=== PATIENT | female | born 1950 | race Two or more races ===

== ENCOUNTER 2016-10-28 09:30 | Emergency (ER) | payer MEDICARE, MEDICAID ==
[~2016-10-28] VITALS: Ht 162.6 cm; Wt 52.2 kg
[2016-10-28] MEDS ORDERED: Haloperidol 5mg/ml Inj IM ONE (11:30)
--- NOTE | 2016-10-28 11:45 | Diagnostic Imaging Report ---
Indication: Chest Pain Comparison: None A single view chest radiograph was obtained. Findings: Mild linear densities are noted at the lung bases likely atelectasis. Heart size is normal. Lung volumes are low. The bones are osteopenic. Impression: Mild basilar atelectasis
[2016-10-28 12:24] VITALS: BP 99/51
[2016-10-28 12:33] LABS: BASOPHILS % (AUTO) 0.4 % (0.0-2.0); EOSINOPHILS % (AUTO) 0.3 % (0.0-3.0); LYMPHOCYTES % (AUTO) 8.6 % (20.0-45.0); MEAN CORPUSCULAR HEMOGLOBIN 33.4 PG (27.0-31.0); MEAN CORPUSCULAR HGB CONC 31.5 G/DL (32.0-36.0); MEAN CORPUSCULAR VOLUME 106 FL (80-99); MONOCYTES % (AUTO) 8.3 % (1.0-10.0); NEUTROPHILS % (AUTO) 82.5 % (45.0-75.0); PLATELET COUNT 629 K/UL (150-450); RED BLOOD COUNT 2.77 M/UL (4.20-5.40); WHITE BLOOD COUNT 12.1 K/UL (4.8-10.8)
[2016-10-28 12:42] LABS: ALANINE AMINOTRANSFERASE 292 U/L (3-33); ALBUMIN/GLOBULIN RATIO 0.7 (1.0-2.7); ANION GAP 16 (5-15); ASPARTATE AMINO TRANSFERASE 762 U/L (5-40); CALCIUM 9.4 mg/dL (8.6-10.2); CARBON DIOXIDE 22 mEQ/L (20-30); CHLORIDE 89 mEQ/L (98-107); CREATININE 0.8 mg/dL (0.5-0.9); GLOMERULAR FILTRATION RATE > 60 mL/min (>60); HEMOLYSIS 4; POTASSIUM 2.8 mEQ/L (3.4-4.9); SODIUM 127 mEQ/L (135-145); TOTAL PROTEIN 5.7 g/dL (6.6-8.7); TROPONIN I < 0.30 ng/mL (<=0.30)
[2016-10-28 12:52] LABS: CKMB < 1.5 ng/mL (< 3.8)
[2016-10-28 13:19] LABS: BILIRUBIN,DIRECT 15.7 mg/dL (0.1-0.3)
[2016-10-28] MEDS ORDERED: NORCO 10-325 T1 EACH ORAL (13:44)
[2016-10-28] MEDS ORDERED: LEVAQUIN750 MG ORAL (13:44)
[2016-10-28 14:08] VITALS: BP 99/51
--- NOTE | 2016-10-28 15:16 | Emergency Room Report ---
History of Present Illness General Chief Complaint: General Complaint Source: Patient, Family Member, Medical Record, EMS Present Illness HPI 66-year-old female presents to ED for evaluation. EMS brought the patient in because she wanted to see a doctor. Patient lives in a convalescent home. Patient walked out from the facility because she was upset and went to the nearby [employer]. Bystanders called 911. Patient states she states she feels very anxious and feels pain all over. Pain is a 10 out of 10, throbbing, nonradiating. No other aggravating or relieving factors. Per EMS patient is hospice care for ovarian cancer. Patient states she does not want to be evaluated here would like to leave and go to [facility]. Patient does not trust this hospital or the facility in which she was staying. No other aggravating relieving factors. Denies any other associated symptoms Allergies: Coded Allergies: No Known Allergies (Unverified , 10/28/16) Patient History Past Medical History: psych hx, other - ovarian cancer Past Surgical History: none Pertinent Family History: none Social History: Denies: alcohol use, drug use, smoking Last Menstrual Period: na Now: No Immunizations: UTD Reviewed Nursing Documentation: PMH: Agreed, PSxH: Agreed Nursing Documentation-PMH Hx Cancer: Yes - ovarian cancer History Of Psychiatric Problem: Yes - anxiety Review of Systems All Other Systems: negative except mentioned in HPI Physical Exam Vital Signs Date Time Temp Pulse Resp B/P Pulse Ox O2 Delivery O2 Flow Rate FiO2 10/28/16 09:24 98.8 72 16 128/78 98 Room Air Sp02 EP Interpretation: reviewed, normal General Appearance: no apparent distress, alert, GCS 15, non-toxic, cachetic Head: normocephalic, atraumatic Eyes: bilateral eye PERRL, bilateral eye normal inspection ENT: hearing grossly normal, normal pharynx, no angioedema, normal voice Neck: full range of motion, supple/symm/no masses Respiratory: chest non-tender, lungs clear, normal breath sounds, speaking full sentences Cardiovascular #1: regular rate, rhythm, no edema Cardiovascular #2: 2+ carotid (R), 2+ carotid (L), 2+ radial (R), 2+ radial (L) , 2+ dorsalis pedis (R), 2+ dorsalis pedis (L) Gastrointestinal: normal bowel sounds, non tender, soft, non-distended, no guarding, no rebound Rectal: deferred Genitourinary: normal inspection, no CVA tenderness Musculoskeletal: back normal, gait/station normal, normal range of motion, non- tender, calf tenderness Neurologic: alert, oriented x3, responsive, motor strength/tone normal, sensory intact, speech normal Psychiatric: mood/affect normal, anxious Reflexes: 3+ bicep (R), 3+ bicep (L), 3+ tricep (R), 3+ tricep (L), 3+ knee (R) , 3+ knee (L) Skin: jaundice Lymphatic: no adenopathy Medical Decision Making Diagnostic Impression: Primary Impression: Atelectasis Additional Impressions: Encounter for generalized patient complaints Psychosis Qualified Codes: F29 - Unspecified psychosis not due to a substance or known physiological condition ER Course 66-year-old female presents for evaluation. Left her facility AMA. Wants to leave and go to [facility]. History of ovarian cancer. Hospice care Differential-anxiety, psychosis, dehydration She placed on stretcher. After initial history and physical patient states she did not want to have blood drawn or be evaluated. Wants to leave. States she will walk to [facility]. Dr Shaw evaluated the patient at bedside. Does not believe patient has mental capacity to make her own decisions at this time. Behaving in a psychotic manner. Recommends antipsychotics which are not be given to her at the facility Patient given Haldol in ED. Patient is now more amenable to blood draw, EKG, chest x-ray livestock farm workers that is familiar with the patient is at bedside and is attempting to facilitate transfer to a new facility Labs-no leukocytosis, hemoglobin/hematocrit stable, electrolytes okay, LFTs grossly elevated, troponins negative EKG-normal sinus rhythm, no acute changes chest x-ray shows bilateral atelectasis Family is now bedside. they would like to take patient home at this time. I discussed the lab findings with them. They agreed that nothing is acute and requires admission. We will treat the atelectasis with antibiotics livestock farm workers at bedside will help facilitate proper equipment to the family's home in order to take care of the patient Diagnosis-atelectasis, psychosis Stable and discharged to home with prescription for Levaquin, [place]. Followup with PMD. Return to ED if symptoms recur or worsen Labs Test 10/28/16 12:07 White Blood Count 12.1 K/UL (4.8-10.8) Red Blood Count 2.77 M/UL (4.20-5.40) Hemoglobin 9.2 G/DL (12.0-16.0) Hematocrit 29.3 % (37.0-47.0) Mean Corpuscular Volume 106 FL (80-99) Mean Corpuscular Hemoglobin 33.4 PG (27.0-31.0) Mean Corpuscular Hemoglobin Concent 31.5 G/DL (32.0-36.0) Red Cell Distribution Width 17.0 % (11.6-14.8) Platelet Count 629 K/UL (150-450) Mean Platelet Volume 5.0 FL (6.5-10.1) Neutrophils (%) (Auto) 82.5 % (45.0-75.0) Lymphocytes (%) (Auto) 8.6 % (20.0-45.0) Monocytes (%) (Auto) 8.3 % (1.0-10.0) Eosinophils (%) (Auto) 0.3 % (0.0-3.0) Basophils (%) (Auto) 0.4 % (0.0-2.0) Sodium Level 127 mEQ/L (135-145) Potassium Level 2.8 mEQ/L (3.4-4.9) Chloride Level 89 mEQ/L (98-107) Carbon Dioxide Level 22 mEQ/L (20-30) Anion Gap 16 (5-15) Blood Urea Nitrogen 24 mg/dL (7-23) Creatinine 0.8 mg/dL (0.5-0.9) Estimat Glomerular Filtration Rate > 60 mL/min (>60) Glucose Level 123 mg/dL (74-106) Calcium Level 9.4 mg/dL (8.6-10.2) Total Bilirubin 24.1 mg/dL (0.0-1.2) Direct Bilirubin 15.7 mg/dL (0.1-0.3) Aspartate Amino Transf (AST/SGOT) 762 U/L (5-40) Alanine Aminotransferase (ALT/SGPT) 292 U/L (3-33) Alkaline Phosphatase 3407 U/L (35-104) Total Creatine Kinase 52 U/L (26-140) Creatine Kinase MB < 1.5 ng/mL (< 3.8) Creatine Kinase MB Relative Index 2.8 Troponin I < 0.30 ng/mL (<=0.30) Total Protein 5.7 g/dL (6.6-8.7) Albumin 2.4 g/dL (3.5-5.2) Globulin 3.3 g/dL Albumin/Globulin Ratio 0.7 (1.0-2.7) EKG Diagnostic Results Rate: normal Rhythm: NSR ST Segments: no acute changes ASA given to the pt in ED: No Rhythm Strip Diag. Results EP Interpretation: yes Rhythm: NSR, no PVC's, no ectopy Chest X-Ray Diagnostic Results EP Interpretation: No Findings: no consolidation, no effusion, no pneumothorax, no acute cardiopulmonary disease, other - bilateral atelectasis Number of Views: 1 Last Vital Signs Date Time Temp Pulse Resp B/P Pulse Ox O2 Delivery O2 Flow Rate FiO2 10/28/16 14:08 97.7 78 12 99/51 98 Room Air Status: improved Disposition: HOME, SELF-CARE Condition: Stable Scripts Hydrocodone Bit/Acetaminophen 10-325* (NORCO 10-325*) 1 Each Tablet 1 TAB ORAL Q6H Y for For Pain, #10 TAB 0 Refills PRN PAIN Prov: ROBBY HERNÁNDEZ M.D. 10/28/16 Levofloxacin* (LEVAQUIN*) 750 Mg Tablet 750 MG ORAL DAILY, #5 TAB Prov: ROBBY HERNÁNDEZ M.D. 10/28/16 Referrals: NON PHYSICIAN (PCP) Patient Instructions: End-of-Life Care ROBBY HERNÁNDEZ M.D. Oct 28, 2016 15:16
--- NOTE | 2016-10-29 00:26 | Consultation ---
History of Present Illness General Date patient seen: Oct 28, 2016 Chief Complaint: General Complaint Present Illness HPI 66-year-old female presents for evaluation. Left her facility AMA. Wants to leave and go to [facility]. History of ovarian cancer. Hospice care. the pt did not want to have blood drawn or be evaluated. she wanted to leave. States she will walk to [facility]. the pt was confused and disorganized the pt was unable to understand, communicate nor process the information was given to her. Allergies: Coded Allergies: No Known Allergies (Unverified , 10/28/16) Medication History Scheduled Levofloxacin* (Levaquin*), 750 MG ORAL DAILY Scheduled PRN Hydrocodone Bit/Acetaminophen 10-325* ([place] 10-325*), 1 TAB ORAL Q6H PRN for For Pain Patient History Limited by: medical condition History Provided By: Patient, Family Member, Medical Record, PMD Healthcare decision maker Resuscitation status Advanced Directive on File Past Medical/Surgical History Past Medical/Surgical History: (1) Psychosis (2) Atelectasis (3) Encounter for generalized patient complaints Review of Systems Constitutional: Reports: malaise, weakness Psychiatric: Reports: anxiety, depressed feelings, emotional problems, hallucinations, prior hx Physical Exam General Appearance: alert, confused, moderate distress Neurologic: alert, responsive, disoriented Last 24 Hour Vital Signs Date Time Temp Pulse Resp B/P Pulse Ox O2 Delivery O2 Flow Rate FiO2 10/28/16 14:08 97.7 78 12 99/51 98 Room Air 10/28/16 12:24 97.7 78 12 99/51 98 Room Air 10/28/16 09:24 98.8 72 16 128/78 98 Room Air Intake and Output 10/28/16 10/29/16 19:00 07:00 Intake Total 500 ml Balance 500 ml Intake Oral 0 ml IV Total 500 ml Laboratory Tests Test 10/28/16 12:07 White Blood Count 12.1 K/UL (4.8-10.8) H Red Blood Count 2.77 M/UL (4.20-5.40) L Hemoglobin 9.2 G/DL (12.0-16.0) L Hematocrit 29.3 % (37.0-47.0) L Mean Corpuscular Volume 106 FL (80-99) H Mean Corpuscular Hemoglobin 33.4 PG (27.0-31.0) H Mean Corpuscular Hemoglobin Concent 31.5 G/DL (32.0-36.0) L Red Cell Distribution Width 17.0 % (11.6-14.8) H Platelet Count 629 K/UL (150-450) H Mean Platelet Volume 5.0 FL (6.5-10.1) L Neutrophils (%) (Auto) 82.5 % (45.0-75.0) H Lymphocytes (%) (Auto) 8.6 % (20.0-45.0) L Monocytes (%) (Auto) 8.3 % (1.0-10.0) Eosinophils (%) (Auto) 0.3 % (0.0-3.0) Basophils (%) (Auto) 0.4 % (0.0-2.0) Sodium Level 127 mEQ/L (135-145) L Potassium Level 2.8 mEQ/L (3.4-4.9) L Chloride Level 89 mEQ/L (98-107) L Carbon Dioxide Level 22 mEQ/L (20-30) Anion Gap 16 (5-15) H Blood Urea Nitrogen 24 mg/dL (7-23) H Creatinine 0.8 mg/dL (0.5-0.9) Estimat Glomerular Filtration Rate > 60 mL/min (>60) Glucose Level 123 mg/dL (74-106) H Calcium Level 9.4 mg/dL (8.6-10.2) Total Bilirubin 24.1 mg/dL (0.0-1.2) H Direct Bilirubin 15.7 mg/dL (0.1-0.3) H Aspartate Amino Transf (AST/SGOT) 762 U/L (5-40) H Alanine Aminotransferase (ALT/SGPT) 292 U/L (3-33) H Alkaline Phosphatase 3407 U/L (35-104) H Total Creatine Kinase 52 U/L (26-140) Creatine Kinase MB < 1.5 ng/mL (< 3.8) Creatine Kinase MB Relative Index 2.8 Troponin I < 0.30 ng/mL (<=0.30) Total Protein 5.7 g/dL (6.6-8.7) L Albumin 2.4 g/dL (3.5-5.2) L Globulin 3.3 g/dL Albumin/Globulin Ratio 0.7 (1.0-2.7) L Height (Feet): 5 Height (Inches): 4.00 Weight (Pounds): 115 Assessment/Plan Status: not improved Assessment/Plan psychotic d/o due to [facility] -haldol if refuse po -po rispredal -the pt may not leave [facility] lacks capacity Radha Shaw M.D. Oct 29, 2016 00:25
== END 2016-10-28 14:26 | disposition home or self-care (01) ==
LOC: EDBD 09:30 → EMR 11:09
DX: J98.11 Atelectasis (principal); F29 Unspecified psychosis not due to a substance or known physiological condition; C56.9 Malignant neoplasm of unspecified ovary
CPT/HCPCS: 36415; 71010; 80053; 82248; 82550; 82553; 84484; 85025; 93005; 96360; 96372; 99284; J1630; J7040